=== PATIENT | female | born 1960 | race Caucasian/White ===

== ENCOUNTER 2025-01-11 15:10 | Inpatient (IN) | payer MEDICARE, OTHER ==
[~2025-01-11] VITALS: Ht 154.9 cm; Wt 53.3 kg
[2025-01-11] MEDS ORDERED: HYDROMORPHONE 1 MG/1 ML DISP.SYRIN ONE (16:56)
[2025-01-11 17:02] LABS: PLATELET COUNT (AUTO) 290 K/uL (179-408); RED BLOOD CELL COUNT(AUTO) 4.10 MIL/uL (3.63-4.92); RED CELL DISTRIBUTION WIDTH 15.2 % (12.3-17.7); WHITE BLOOD COUNT (AUTO) 23.1 K/uL (3.8-11.8)
[2025-01-11] MEDS: HYDROMORPHONE 1 MG/1 ML DISP.SYRIN IV ONE (17:07)
[2025-01-11] MEDS ORDERED: ONDANSETRON 4 MG/2 ML VIAL ONE (17:07)
[2025-01-11] MEDS: ONDANSETRON 4 MG/2 ML VIAL IV ONE (17:14)
[2025-01-11 17:16] LABS: ASPARTATE AMINOTRANSFERASE 13 U/L (15-37); CREATININE 0.8 mg/dL (0.6-1.3); SODIUM SERUM 135 mmol/L (136-145); TOTAL PROTEIN, SERUM 8.5 g/dL (6.4-8.2); UREA NITROGEN, BLOOD 24 mg/dL (7-18)
[2025-01-11 17:31] LABS: *BILIRUBIN,URIN 1+ (NEGATIVE); *CLARITY,URINE CLEAR (CLEAR); *COLOR,URINE YELLOW (YELLOW); *KETONES,URINE 1+ (NEGATIVE); *PROTEIN,URINE 1+ (NEGATIVE); *UROBILINOGEN,URINE 0.2 E.U./dl (NORMAL); LEUKOCYTE ESTERASE ,URINE TRACE (NEGATIVE); NITRITE, URINE NEGATIVE (NEGATIVE); UGLUCOSE NEGATIVE (NEGATIVE)
[2025-01-11 17:32] LABS: *BLOOD, URINE TRACE (NEGATIVE)
[2025-01-11 17:40] LABS: SQUAMOUS EPITHELIAL CELL,UR MODERATE /HPF (NONE SEEN)
[2025-01-11] MEDS ORDERED: METRONIDAZOLE 500 MG/NS 100ML 100 ML IV ONE (18:38)
[2025-01-11] MEDS ORDERED: CEFTRIAXONE /D5W 50ML IVPB **ER PYXIS IV ONE (18:38)
[2025-01-11] MEDS: IV NORMAL SALINE 1000 ML BAG IV ONE (18:48)
[2025-01-11] MEDS: METRONIDAZOLE 500 MG/NS 100ML 100 ML IV ONE (18:48)
[2025-01-11] MEDS ORDERED: REMEDY ESSENTIAL ZINC PASTE 113 GM TP PRN (19:00)
[2025-01-11] MEDS ORDERED: PIPERACILLIN SODIUM/TAZOBACTAM 3.375 G in IV DEXTROSE 5% 50 ML IV SCH (19:12)
[2025-01-11 19:31] VITALS: BP 111/67
[2025-01-11 19:40] VITALS: BP 123/75; TEMP 100.9; O2SAT 96
[2025-01-11] MEDS ORDERED: PIPERACILLIN/TAZOBACTAM/D5W 50 ML IV ONE (21:31)
[2025-01-11] MEDS: PIPERACILLIN SODIUM/TAZOBACTAM 3.375 G in IV DEXTROSE 5% 50 ML IV SCH (21:44)
[2025-01-11] MEDS: IV D5 1/2 NS 1000 ML 1,000 ML IV PRN (21:44)
[2025-01-11] MEDS ORDERED: PIPERACILLIN SODIUM/TAZOBACTAM 4.5 G in IV DEXTROSE 5% 50 ML IV SCH (22:00)
[2025-01-11] MEDS: ACETAMINOPHEN 650 MG SUPP.RECT RC PRN (23:24)
[2025-01-11] MEDS: MORPHINE SULFATE 2 MG/1 ML DISP.SYRIN IV PRN (23:25)
[2025-01-12] MEDS ORDERED: PIPERACILLIN/TAZOBACTAM/D5W 50 ML IV ONE (04:12)
[2025-01-12 04:20] VITALS: BP 121/84; TEMP 99; O2SAT 97
[2025-01-12 06:45] LABS: PLATELET COUNT (AUTO) 265 K/uL (179-408); RED BLOOD CELL COUNT(AUTO) 3.58 MIL/uL (3.63-4.92); RED CELL DISTRIBUTION WIDTH 15.2 % (12.3-17.7); WHITE BLOOD COUNT (AUTO) 16.4 K/uL (3.8-11.8)
[2025-01-12 07:02] LABS: CREATININE 0.8 mg/dL (0.6-1.3); SODIUM SERUM 140.0 mmol/L (136-145); UREA NITROGEN, BLOOD 19.0 mg/dL (7-18)
[2025-01-12 08:00] VITALS: BP 119/79; TEMP 99.2; O2SAT 96
[2025-01-12] MEDS: ONDANSETRON 4 MG/2 ML VIAL IV PRN (08:40)
[2025-01-12] MEDS ORDERED: DIATR MEGLU/DIATRIZOATE SODIUM 30 ML BOTTLE ONE (10:13)
[2025-01-12] MEDS ORDERED: CYCL30DR EACHEYE (10:14)
[2025-01-12] MEDS ORDERED: POLY15DR31 EACHEYE (10:14)
[2025-01-12] MEDS: CYCLOSPORINE 0.05% EACHEYE SCH (11:10)
[2025-01-12] MEDS: [UNRECOGNIZED DRUG - OTHER] EACHEYE SCH (11:10)
[2025-01-12] MEDS: POLYVINYL ALCOHOL OPHT DROPS 15 ML BOTTLE EACHEYE PRN (11:11)
[2025-01-12 12:00] VITALS: BP 132/87; TEMP 100.9; O2SAT 95
[2025-01-12] MEDS: PIPERACILLIN SODIUM/TAZOBACTAM 3.375 G in IV DEXTROSE 5% 100 ML IV SCH (12:00)
[2025-01-12 15:50] VITALS: BP 117/79; TEMP 100.1; O2SAT 94
[2025-01-12] MEDS: MORPHINE SULFATE 2 MG/1 ML DISP.SYRIN IV PRN (15:59)
[2025-01-12 19:52] VITALS: BP 117/75; TEMP 100.3; O2SAT 93
[2025-01-13 00:31] VITALS: BP 123/84; TEMP 97.5; O2SAT 91
[2025-01-13 04:25] VITALS: BP 140/87; TEMP 99.1; O2SAT 91
[2025-01-13 08:00] VITALS: BP 119/81; TEMP 98.5; O2SAT 95
[2025-01-13 12:00] VITALS: BP 126/81; TEMP 99.2; O2SAT 96
[2025-01-13 16:14] VITALS: BP 120/80; TEMP 99.8; O2SAT 96
[2025-01-13 19:25] VITALS: BP 127/85; TEMP 99.1; O2SAT 93
[2025-01-14 06:49] VITALS: BP 133/86; TEMP 98.6; O2SAT 94
[2025-01-14] MEDS: PANTOPRAZOLE SODIUM 40 MG VIAL IV SCH (09:12)
[2025-01-14 09:37] LABS: PLATELET COUNT (AUTO) 328 K/uL (179-408); RED BLOOD CELL COUNT(AUTO) 3.73 MIL/uL (3.63-4.92); RED CELL DISTRIBUTION WIDTH 15.4 % (12.3-17.7); WHITE BLOOD COUNT (AUTO) 8.6 K/uL (3.8-11.8)
[2025-01-14 09:46] LABS: CREATININE 0.8 mg/dL (0.6-1.3); SODIUM SERUM 145.0 mmol/L (136-145); UREA NITROGEN, BLOOD 9.0 mg/dL (7-18)
[2025-01-14 12:00] VITALS: BP 121/81; TEMP 98.1; O2SAT 97
[2025-01-14 16:11] VITALS: BP 127/83; TEMP 98.9; TEMP 99; O2SAT 96
[2025-01-14 19:49] VITALS: BP 150/95; TEMP 98.3; O2SAT 95
[2025-01-15 05:58] VITALS: BP 135/83; TEMP 98.7; O2SAT 94
[2025-01-15 08:38] LABS: PLATELET COUNT (AUTO) 358 K/uL (179-408); RED BLOOD CELL COUNT(AUTO) 3.52 MIL/uL (3.63-4.92); RED CELL DISTRIBUTION WIDTH 15.0 % (12.3-17.7); WHITE BLOOD COUNT (AUTO) 6.9 K/uL (3.8-11.8)
[2025-01-15 11:38] VITALS: BP 127/74; TEMP 99; O2SAT 96
[2025-01-15 14:38] VITALS: TEMP 98.7
[2025-01-15 15:44] VITALS: BP 136/79; TEMP 98.8; O2SAT 98
[2025-01-15 19:40] VITALS: BP 146/90; TEMP 99.3; O2SAT 98
[2025-01-16 06:06] VITALS: BP 120/71; TEMP 98.5; O2SAT 96
[2025-01-16 10:20] VITALS: BP 118/68; TEMP 98.2; O2SAT 97
[2025-01-16 11:37] VITALS: BP 125/85; TEMP 99.1; O2SAT 98
[2025-01-16] MEDS ORDERED: LEVO500T90 PO ×2 (13:25→13:27)
[2025-01-16] MEDS ORDERED: PANT40TA2 PO ×2 (13:25→13:27)
[2025-01-16 15:48] VITALS: BP 117/76; TEMP 98.3; O2SAT 99
== END 2025-01-16 19:05 | disposition home or self-care (01) | DRG 389 ==
LOC: ER 15:10 → TELE3 20:34 → MEDSURG3 01-13 13:15
PROVIDERS: ADMIT Internal Medicine; ATTEND Internal Medicine
PROC: 0D9670Z Drainage of Stomach with Drainage Device, Via Natural or Artificial Opening (ICD-10-PCS; principal; 2025-01-12)
DX: K56.609 Unspecified intestinal obstruction, unspecified as to partial versus complete obstruction (principal); E87.1 Hypo-osmolality and hyponatremia; K52.9 Noninfective gastroenteritis and colitis, unspecified; N63.20 Unspecified lump in the left breast, unspecified quadrant; Z91.018 Allergy to other foods; Z90.710 Acquired absence of both cervix and uterus
CPT/HCPCS: 36415; 71045; 74018; 74250; 83605; 83735; 84100; 84484; 85025; 85730; 87040; 87086; A4606; A4663; G0378; J0696; J1171; J2270; J2405; J2470; J2543; J3490; J7040; Q9963